=== PATIENT | male | born 1950 | race Caucasian/White ===

== ENCOUNTER 2018-10-25 02:44 | Emergency (ER) | payer SELFPAY ==
[~2018-10-25] VITALS: Ht 175.3 cm; Wt 63.5 kg
[2018-10-25 08:56] LABS: Urine Bacteria NONE SEEN /hpf (None Seen); Urine Blood Negative /uL (Negative); Urine Hyaline Cast FEW /lpf (0 - 2); Urine Specific Gravity 1.033 (1.001-1.035); Urine WBC <1 /hpf (0 - 3)
[2018-10-25 09:12] LABS: Amphetamine Screen, Urine POSITIVE (NEGATIVE); Barbiturate Scree,Urine NEGATIVE (NEGATIVE); Benzodiazephine Screen, Urine NEGATIVE (NEGATIVE); Cannabinoid Screen, Urine NEGATIVE (NEGATIVE); Cocaine Screen, Urine NEGATIVE (NEGATIVE); Opiate Scree,Urine NEGATIVE (NEGATIVE); Phencyclidine Screen, Urine NEGATIVE (NEGATIVE)
[2018-10-25 09:21] LABS: Basophils # (auto) 0 uL; Basophils % (auto) 0.4 % (0.0-2.0); Eosinophils # (auto) 0.2 uL; Eosinophils % (auto) 4.3 % (0.0-7.0); Hematocrit 41.1 % (41.0-53.0); Hemoglobin 13.5 g/dL (13.5-17.5); Lymphocytes # (auto) 1.8 uL; Lymphocytes % (auto) 32.6 % (10.0-50.0); Mean Corpuscular Hgb Conc. 32.8 g/dL (32.0-36.0); Mean Corpuscular Volume 97.4 fL (80.0-100.0); Monocytes # (auto) 0.6 uL; Neutrophils # (auto) 2.9 uL; Neutrophils % (auto) 51.7 % (37.0-80.0); Nucleated Red Blood Cells % 0.1 %; Platelet Count (auto) 199 10^3/uL (140-450); Red Blood Cells 4.22 10^6/uL (4.5-5.90); Red Cell Distribution Width 14.9 % (11.8-14.3); White Blood Cell 5.7 10^3/uL (4.4-10.8)
[2018-10-25 09:28] LABS: Albumin 3.7 g/dL (3.4-5.0); BUN/Creatinine Ratio 18.5; Calcium 8.7 mg/dL (8.5-10.1)
[2018-10-25 10:07] LABS: Bilirubin, Total 0.7 mg/dL (0.2-1.0); Potassium 3.7 mmol/L (3.5-5.1); Total Protein 7.4 g/dL (6.4-8.2)
[2018-10-25] MEDS ORDERED: LORazepam 2MG/ML-1ML VIAL IV ONE (11:30)
[2018-10-25] MEDS ORDERED: KETOROLAC TROMETH 30 MG/ML 1ML VIAL IV ONE (11:30)
[2018-10-25 11:35] LABS: Salicylate 3.8 mg/dL (2.8-20.0)
[2018-10-25 11:37] LABS: Acetaminophen < 2.0 ug/mL (10-30)
[2018-10-25] MEDS ORDERED: LORazepam 0.5 MG TAB PO PRN (22:00)
[2018-10-25] MEDS ORDERED: LORazepam 0.5 MG TAB PO SCH (22:00)
[2018-10-27] MEDS ORDERED: guaiFENesin-CODEINE LIQUID 5 ML UD ONE (23:44)
[2018-10-27] MEDS ORDERED: guaiFENesin-CODEINE LIQUID 5 ML UD PO ONE (23:45)
[2018-10-28] MEDS ORDERED: ACETAMINOPHEN 325 MG TAB PO ONE (12:00)
[2018-10-29 06:39] VITALS: BP 156/85
== END 2018-10-29 20:22 | disposition home or self-care (01) ==
LOC: ER 02:44
DX: F32.9 Major depressive disorder, single episode, unspecified (principal); F15.10 Other stimulant abuse, uncomplicated; F10.10 Alcohol abuse, uncomplicated; R51 Headache; F17.210 Nicotine dependence, cigarettes, uncomplicated
CPT/HCPCS: 36415; 70450; 71046; 80053; 80307; 80329; 81001; 83735; 84443; 85025; 93005; 96374; 96375; 99284; J1885; J2060; J7030